=== PATIENT | female | born 1990 | race Caucasian/White ===

== ENCOUNTER 2018-02-10 17:43 | Emergency (ER) | payer BC ==
[2018-02-10 18:22] VITALS: BP 151/104
--- NOTE | 2018-02-10 18:37 | UC ---
Skin Complaint HPI - HPI Summary HPI Summary: 27 F with rash LE . Had PCP see it yesterday. No fever. since yesterday the redness and warmth to the right leg. no discharge. has eczema in the past and steroid cream for this but this different - History of Current Complaint Chief Complaint: UCSkin Time Seen by Provider: 02/10/18 18:22 Stated Complaint: RASH Hx Obtained From: Patient Hx Last Menstrual Period: now Onset/Duration: Sudden Onset Timing: Constant Pain Intensity: 6 Aggravating Factor(s): Nothing Alleviating Factor(s): Nothing - Allergy/Home Medications Allergies/Adverse Reactions: Allergies Allergy/AdvReac Type Severity Reaction Status Date / Time Cephalosporins Allergy Hives Verified 02/10/18 18:23 Penicillins Allergy Hives Verified 02/10/18 18:23 Home Medications: Home Medications Clobetasol 0.05% OINT* 1 dose TOPICAL BID 02/10/18 [History Confirmed 02/10/18] metFORMIN* [Glucophage 850 MG TAB *] 1 tab PO BID 02/10/18 [History Confirmed ] Review of Systems Skin: Other - bug bites legs Is Patient Immunocompromised?: No All Other Systems Reviewed And Are Negative: Yes PMH/Surg Hx/FS Hx/Imm Hx Previously Healthy: Yes - Surgical History Surgical History: Yes Surgery Procedure, Year, and Place: Tonsils - Family History Known Family History: Positive: None - Social History Occupation: Employed Full-time Lives: With Family - fiance Alcohol Use: Occasionally Substance Use Type: None Smoking Status (MU): Never Smoked Tobacco Physical Exam Triage Information Reviewed: Yes Appearance: Well-Appearing, No Pain Distress, Well-Nourished Vital Signs: Initial Vital Signs Temp 98.3 F 02/10/18 18:17 Pulse 112 02/10/18 18:17 Resp 18 02/10/18 18:17 BP 151/104 02/10/18 18:17 Pulse Ox 100 02/10/18 18:17 Vital Signs Reviewed: Yes Eye Exam: Normal ENT Exam: Normal Respiratory Exam: Normal Cardiovascular Exam: Normal Musculoskeletal Exam: Normal Neurological Exam: Normal Psychological Exam: Normal Skin Exam: Normal Skin: Positive: Other - right lateral LE with 2 reddened warm tender areas. no fluctuance. no discharge. no homans . no streaking. < 5x5 mm with earnest surrounding erythema Course/Dx - Course Course Of Treatment: with the redness and warmth surrounding the insect bites will treat at this time with keflex. no abscess concerns. if sx worsen then RTO. she is worried about worsening staph -- PCN allergy -- start doxy -- she is aware of SE - Differential Diagnoses - Skin Complaint Differential Diagnoses: Contact Dermatitis, Drug Intoxication, Local Allergic Reaction, Poison [place], Poison [place], Tick Born Illness, Urticaria - Diagnoses Provider Diagnoses: right LE cellulitis Discharge - Sign-Out/Discharge Documenting (check all that apply): Discharge/Admit/Transfer - Discharge Plan Condition: Good Disposition: HOME Prescriptions: Doxycycline Hyclate 100 mg PO BID 10 Days #20 tablet Patient Education Materials: Cellulitis (ED) Referrals: Jazmin Calderon MD [Primary Care Provider] - 4 Days - Billing Disposition and Condition Condition: GOOD Disposition: HOME
== END 2018-02-10 18:52 | disposition home or self-care (01) ==
LOC: UCEAST 17:43
DX: L03.116 Cellulitis of left lower limb (principal); Z88.3 Allergy status to other anti-infective agents; Z88.0 Allergy status to penicillin; Z79.84 Long term (current) use of oral hypoglycemic drugs
CPT/HCPCS: 99202; G0463

== ENCOUNTER 2018-04-13 14:11 | Emergency (ER) | payer BC ==
[2018-04-13 14:47] VITALS: BP 157/69
--- NOTE | 2018-04-13 15:20 | UC ---
Skin Complaint HPI - HPI Summary HPI Summary: gradual onset of "painful" boils buttocks and gluteal fold - History of Current Complaint Chief Complaint: UCSkin Time Seen by Provider: 04/13/18 14:53 Stated Complaint: SKIN COMPLAINT Hx Obtained From: Patient Hx Last Menstrual Period: 03/13/18 ?: No Onset/Duration: Gradual Onset, Lasting Days, Still Present Skin Exposure Onset/Duration: Days Ago Timing: Constant Onset Severity: Moderate Current Severity: Moderate Pain Intensity: 6 Location: Other - buttocks, Character: Raised, Painful Aggravating Factor(s): Touch Alleviating Factor(s): Nothing Associated Signs & Symptoms: Positive: Rash - has hx of psoriasis, Tenderness - Allergy/Home Medications Allergies/Adverse Reactions: Allergies Allergy/AdvReac Type Severity Reaction Status Date / Time Cephalosporins Allergy Hives Verified 04/13/18 14:45 Penicillins Allergy Hives Verified 04/13/18 14:45 Review of Systems Constitutional: Negative Skin: Other - abscesses, buttocks, psoriasis Eyes: Negative ENT: Negative Respiratory: Negative Cardiovascular: Negative Gastrointestinal: Negative Genitourinary: Negative Motor: Negative Neurovascular: Negative Musculoskeletal: Negative Neurological: Negative Psychological: Negative Is Patient Immunocompromised?: No All Other Systems Reviewed And Are Negative: Yes PMH/Surg Hx/FS Hx/Imm Hx Previously Healthy: Yes - Surgical History Surgical History: Yes Surgery Procedure, Year, and Place: T&A. wisdom teeth - Family History Known Family History: Positive: Cardiac Disease - Social History Occupation: Employed Full-time Lives: With Family Alcohol Use: Occasionally Substance Use Type: None Smoking Status (MU): Never Smoked Tobacco Have You Smoked in the Last Year: No Physical Exam Triage Information Reviewed: Yes Appearance: Well-Appearing, Obese Vital Signs: Initial Vital Signs Temp 99.0 F 04/13/18 14:37 Pulse 88 04/13/18 14:37 Resp 19 04/13/18 14:37 BP 157/69 04/13/18 14:37 Pulse Ox 99 04/13/18 14:37 Vital Signs Reviewed: Yes Eye Exam: Normal ENT: Positive: Hearing grossly normal Dental Exam: Normal Neck exam: Normal Respiratory Exam: Normal Musculoskeletal Exam: Normal Neurological Exam: Normal Psychological Exam: Normal Skin Exam: Other - multiple cysts, abscess in various stages of healing scattered on buttocks,. left upper buttocks, firm, non fluctuant tender abscess. Course/Dx - Differential Diagnoses - Skin Complaint Differential Diagnoses: Abscess, Cellulitis, MRSA - Diagnoses Provider Diagnoses: skin infection. abscesses Discharge - Sign-Out/Discharge Documenting (check all that apply): Patient Departure - Discharge Plan Condition: Stable Disposition: HOME Prescriptions: DOXYcycline CAP(*) [DOXYcycline 100MG CAP(*)] 100 mg PO Q12H #14 cap Fluconazole 100 MG TAB* [Diflucan 100 MG TAB*] 100 mg PO DAILY #2 tab Patient Education Materials: Abscess (ED), Warm Compress or Soak (ED) Referrals: Jazmin Calderon MD [Primary Care Provider] - If Needed - Billing Disposition and Condition Condition: STABLE Disposition: Home
== END 2018-04-13 15:31 | disposition home or self-care (01) ==
LOC: UCCORT 14:11
DX: L02.31 Cutaneous abscess of buttock (principal); L02.32 Furuncle of buttock; Z88.0 Allergy status to penicillin; Z88.1 Allergy status to other antibiotic agents
CPT/HCPCS: 99212; G0463

== ENCOUNTER 2019-07-19 09:11 | Emergency (ER) | payer OTHER ==
[2019-07-19 10:12] VITALS: BP 136/65
--- NOTE | 2019-07-19 10:23 | UC ---
Hand/Wrist HPI - HPI Summary HPI Summary: 29 y/o female presents to the urgent care c/o left wrist pain which has worsen since yesterday. Pt reports she took a four wheeling course last week and she hit her left wrist on something. Left wrist was mild afterwards. However, she has been doing a lot of movment w/ her wrist and yesterday and shooting pain developed w/ mild swelling on the lateral side of her left wrist. Pt denies bruises or numbness or tingling sensation over the left hand or wrist. Pain is 6 /10 w/ decrease flexion. She has taken ibuprofen 600mg PO last night, but nothing today. Pt denies SOB, chest pain, abdominal pain N/V/D. She had Hx of tendonitis on the same wrist many years ago. - History Of Current Complaint Chief Complaint: UCUpperExtremity Stated Complaint: LEFT WRIST COMPLAINT Time Seen by Provider: 07/19/19 10:22 Hx Obtained From: Patient Hx Last Menstrual Period: 07/18/2019 ?: No Onset/Duration: Sudden Onset, Lasting Weeks - 1 week, Still Present, Worse Since - yesterday Severity Initially: Mild Severity Currently: Moderate Pain Intensity: 6 - left wrist Pain Scale Used: 0-10 Numeric Character Of Pain: Sharp - at times Aggravating Factor(s): Movement, Lifting, Flexion, Twisting Alleviating Factor(s): Rest, Ice, OTC Meds - Ibuprofen PO Associated Signs And Symptoms: Positive: Negative. Negative: Swelling, Redness , Bruising, Weakness, Numbness/Tingling Related History: Dominant Hand Right - Allergies/Home Medications Allergies/Adverse Reactions: Allergies Allergy/AdvReac Type Severity Reaction Status Date / Time Cephalosporins Allergy Hives Verified 07/19/19 10:08 Penicillins Allergy Hives Verified 07/19/19 10:08 Home Medications: Home Medications Clobetasol 0.05% OINT* 1 applic TOPICAL BID PRN 07/19/19 [History Confirmed ] PMH/Surg Hx/FS Hx/Imm Hx Previously Healthy: Yes Endocrine History: Dyslipidemia - diet control - Surgical History Surgical History: Yes Surgery Procedure, Year, and Place: T&A. wisdom teeth - Family History Known Family History: Positive: Cardiac Disease, Hypertension - Social History Occupation: Employed Full-time Lives: With Family Alcohol Use: Rare Substance Use Type: None Smoking Status (MU): Never Smoked Tobacco Have You Smoked in the Last Year: No Review of Systems All Other Systems Reviewed And Are Negative: Yes Constitutional: Positive: Negative Skin: Positive: Negative Eyes: Positive: Negative ENT: Positive: Negative Respiratory: Positive: Negative Cardiovascular: Positive: Negative Gastrointestinal: Positive: Negative Genitourinary: Positive: Negative Motor: Positive: Negative Neurovascular: Positive: Negative Musculoskeletal: Positive: Decreased ROM - left wrist, Other: - left wrist pain s/p injury Neurological: Positive: Negative Psychological: Positive: Negative Is Patient Immunocompromised?: No Physical Exam - Summary Physical Exam Summary: Vital Signs Reviewed: Yes General: Well-Appearing, No Pain Distress, Well-Nourished female w/o any apparent pain distress Eyes: Positive: Conjunctiva Clear - PERRLA, EOMI ENT: Positive: Normal ENT inspection, Hearing grossly normal, Pharynx normal, TMs normal, Uvula midline Neck: Positive: Supple, Nontender, No Lymphadenopathy Respiratory: Positive: Chest non-tender, Lungs clear, Normal breath sounds, No respiratory distress Cardiovascular: Positive: RRR, No Murmur, Pulses Normal, Brisk Capillary Refill Abdomen Description: Positive: Nontender, No Organomegaly, Soft. Negative: CVA Tenderness (R), CVA Tenderness (L) Bowel Sounds: Positive: Present Musculoskeletal: Positive: Strength Intact, Other: Neurological Exam: Normal Musculoskeletal: Positive: Wrist: the L wrist is without obvious asymmetry or deformity when compared to the R wrist. No surface trauma, open wounds, swelling , or obvious deformity. No overlying erythema or warmth. No bony crepitus. Point tenderness over the ulnar side on lateral side of the wrist. No scaphoid fullness or tenderness to direct palpation or axial load. Decreased ROM due to pain. Motor/sensory function of ulnar, radial, median nerves intact. Ulnar and radial pulses intact. Negative Phalens/Tinels sign . Negative Marty test. Psychological Exam: Normal Skin Exam: Normal Triage Information Reviewed: Yes Vital Signs: Initial Vital Signs Temp 98.4 F 07/19/19 10:06 Pulse 86 07/19/19 10:06 Resp 17 07/19/19 10:06 BP 136/65 07/19/19 10:06 Pulse Ox 100 07/19/19 10:06 Hand/Wrist Course/Dx - Course Course Of Treatment: 29 y/o female presents to the urgent care c/o left wrist pain which has worsen since yesterday. Pt reports she took a four wheeling course last week and she hit her left wrist on something. Left wrist was mild afterwards. However, she has been doing a lot of movment w/ her wrist and yesterday and shooting pain developed w/ mild swelling on the lateral side of her left wrist. Pt denies bruises or numbness or tingling sensation over the left hand or wrist. Pain is 6 /10 w/ decrease flexion. She has taken ibuprofen 600mg PO last night, but nothing today. Pt denies SOB, chest pain, abdominal pain N/V/D. She had Hx of tendonitis on the same wrist many years ago. Hx obtained. Pt given Ibuprofen PO to alleviate pain by nurse. pt tolerated well medication and pain decrease. LF wrist X-ray ordered. Impression: There was no fracture, dislocation, soft tissue swelling or FB noted. Probably a left wrist sprain. Pts wrist immobilized with thumb spica splint by nurse. Advised RICE: Rest, Ice, elevation, Ibuprofen PO. There was no neurovascular compromise after splint application placed by nurse; the splint was in good alignment and the pt had good sensation and capillary refill at the time of discharge.Pt advised to f/u w / Orthopedic Dr Ruiz or Sports Medicine if not improvement of symptoms in 1 week. D/C instructions explained. Pt understood and agreed w/ plan of care. - Differential Dx/Diagnosis Differential Diagnosis/HQI/PQRI: Contusion, Fracture, Sprain, Strain, Tendonitis Provider Diagnosis: Left wrist pain, Left wrist sprain Discharge ED - Sign-Out/Discharge Documenting (check all that apply): Patient Departure - D/C home All imaging exams completed and their final reports reviewed: Yes - Discharge Plan Condition: Stable Disposition: HOME Patient Education Materials: Wrist Sprain (ED) Referrals: [facility] [place] PHYSICIAN REFERRAL [Outside] - 1 Week Miah Ruiz MD [Medical Doctor] - 1 Week [facility] [Provider Group] - 1 Week Additional Instructions: 1-Please take Ibuprofen PO q6-8hrs prns after meals as directed to alleviate pain and swelling. 2-Please apply ice, keep your wrist immobilized with the splint. Avoid heavy lifting or repetitive movements or strenuous exercise 3- Please f/u with Orthopedic DR Ruiz Or sports Medicine or your PCP in 1 week is not improvement of symptoms for further evaluation and treatment. - Billing Disposition and Condition Condition: STABLE Disposition: Home
[2019-07-19] MEDS ORDERED: Ibuprofen TAB* 400 MG PO ONE (10:32)
== END 2019-07-19 11:20 | disposition home or self-care (01) ==
LOC: UCCORT 09:11
DX: S63.502A Unspecified sprain of left wrist, initial encounter (principal); W22.8XXA Striking against or struck by other objects, initial encounter; Y92.9 Unspecified place or not applicable; M25.532 Pain in left wrist; Z88.1 Allergy status to other antibiotic agents; Z88.0 Allergy status to penicillin
CPT/HCPCS: 99213; A9270-GY; G0463